=== PATIENT | male | born 1950 | race Hispanic/Latino ===

== ENCOUNTER 2016-05-01 05:51 | Day surgery (SDC) | payer OTHER ==
--- NOTE | 2016-04-28 11:50 | Anesthesia Consultation ---
Anesthesia Consult and Med Hx Date of service: 05/01/16 - Airway Anesthetic Teeth Evaluation: Dentures, Edentulous ROM Head & Neck: Adequate Mental/Hyoid Distance: Inadequate Mallampati Class: Class III Intubation Access Assessment: Possibly Difficult - Pulmonary Exam CTA: Yes - Cardiac Exam Cardiac Exam: RRR - Pre-Operative Health Status ASA Pre-Surgery Classification: ASA3 Proposed Anesthetic Plan: MAC - Pulmonary Hx Smoking: Yes (quit 2011, 2PPDx 47 years) COPD: Yes (mild) Hx Sleep Apnea: Yes (no longer using) - Cardiovascular System Hx Hypertension: Yes (high cholesterol) Hx Coronary Artery Disease: Yes (x6 stents) Hx Angina: Yes (none recently) Hx Percutaneous Transluminal Coronary Angioplasty (PTCA): Yes - Central Nervous System Hx Neuromuscular Disorder: No CVA: Yes (h/o TIA without deficits) - Gastrointestinal Hx Gastroesophageal Reflux Disease: Yes (well controlled) - Endocrine Hx Renal Disease: No (BPH) Hx End Stage Renal Disease: Yes (stage III) Hx Insulin Dependent Diabetes: Yes - Hematic Hx Anemia: No Hx Sickle Cell Disease: No - Other Systems Hx Alcohol Use: No Hx Substance Use: No Hx Cancer: No Hx Obesity: Yes
--- NOTE | 2016-05-01 07:30 | Anesthesia Day of Surgery ---
Anesthesia Day of Surgery - Day of Surgery Patient Examined: Yes Patient H&P Reviewed: Yes Patient is NPO: Yes Beta Blockers: Yes Cardiac Clearance: No Pulmonary Clearance: No
[2016-05-01] MEDS ORDERED: XYLOCAINE 1% 20 mL ONE (07:31)
[2016-05-01] MEDS ORDERED: DIPRIVAN 10 MG/ML IV ONE ×2 (07:32)
[2016-05-01] MEDS ORDERED: XYLOCAINE MPF 2% ONE (07:45)
--- NOTE | 2016-05-01 07:57 | Discharge Summary ---
Providers - Providers Date of discharge: 05/01/16 Attending physician: RU LANDRY Hospitalization Condition: Good Disposition: DISCHARGED TO HOME OR SELFCARE Core Measure Documentation - Palliative Care Palliative Care/ Comfort Measures: Not Applicable - Core Measures Any of the following diagnoses?: none Exam - Physical Exam Narrative exam: same as on h&p - Constitutional Vitals: Temp Pulse Resp BP Pulse Ox 97.5 F L 75 15 138/81 97 05/01/16 07:26 05/01/16 07:26 05/01/16 07:26 05/01/16 07:26 05/01/16 07:26 Plan Weight Bearing Status: Full Weight Bearing Diet: other (high protein) Follow up with: [facility] [Other] - 7 Days
[2016-05-01] MEDS ORDERED: NACL 0.9% 1000 ML 1,000 ML IV SCH (08:00)
--- NOTE | 2016-05-01 08:12 | Operative Report ---
Operative Report Operative Report: OPERATIVE REPORT - EGD DATE 05/01/16 SURGERY: Upper endoscopy. SURGEON: Moshe Kerr M.D. SENIOR PYTHON DEVELOPER: Remington Vargas Md PRE OP DX: dyspepsia POST OP DX: gastritis esophageal ulcer TYPE OF ANESTHESIA: MAC. ESTIMATED BLOOD LOSS: None. COMPLICATIONS: None. SPECIMENS REMOVED: gastric mucosal bx, and esophageal ulcer bx FINDINGS: 1. Small hiatal hernia. 2. gastritis 3. esophageal ulcer in distal esophagus INDICATIONS:INDICATION FOR PROCEDURE: Patient is a 65-year-old male with a long history of morbid obesity. She is planned to have a weight loss procedure and is here for preoperative planning EGD. PROCEDURE DETAILS: After consent was reviewed, patient was taken back to the operating room where patient was placed in the left lateral decubitus position and a bite block was placed in the mouth. After a time-out was called, MAC anesthesia was initiated. I then passed the endoscope into his oropharynx, into her esophagus, visualized the entire esophagus, which was within normal limits except for an ulcer in the distal portion. A biopsy was taken at this area. I then visualized the stomach which showed chronic gastritis and the first portion of the duodenum of which there were no abnormalities I could clearly visualize. A cold biopsy was taken of the gastric mucosa. I then retroflexed the scope in the stomach and visualized the hiatus and I could see a small hiatal hernia. I then desufflated the stomach and removed the endoscope. Patient tolerated procedure well and was transferred to recovery room in good and stable condition.
[2016-05-01 08:35] VITALS: BP 118/76
--- NOTE | 2016-05-01 09:48 | Post Anesthesia Evaluation ---
- Post Anesthesia Evaluation Patient Participated: Yes Airway Patent: Yes Stable Respiratory Function: Yes Nausea/Vomiting: No Temp > 96.8F: Yes Pain Manageable: Yes Adequeate Hydration: Yes Anesthesia Complications: No Block Receding Appropriately: Not Applicable Patient on Ventilator: No
== END 2016-05-01 05:52 | disposition home or self-care (01) ==
LOC: GIO 05:51
PROVIDERS: ATTEND Surgery
DX: K29.50 Unspecified chronic gastritis without bleeding (principal); K22.10 Ulcer of esophagus without bleeding; K44.9 Diaphragmatic hernia without obstruction or gangrene; J44.9 Chronic obstructive pulmonary disease, unspecified; K21.9 Gastro-esophageal reflux disease without esophagitis; I12.0 Hypertensive chronic kidney disease with stage 5 chronic kidney disease or end stage renal disease; E11.22 Type 2 diabetes mellitus with diabetic chronic kidney disease; N18.6 End stage renal disease; E78.00 Pure hypercholesterolemia, unspecified; E66.01 Morbid (severe) obesity due to excess calories; Z68.34 Body mass index [BMI] 34.0-34.9, adult; Z86.73 Personal history of transient ischemic attack (TIA), and cerebral infarction without residual deficits; Z95.5 Presence of coronary angioplasty implant and graft; Z87.891 Personal history of nicotine dependence; Z90.49 Acquired absence of other specified parts of digestive tract; Z98.1 Arthrodesis status; Z72.89 Other problems related to lifestyle; Z83.3 Family history of diabetes mellitus; Z82.49 Family history of ischemic heart disease and other diseases of the circulatory system
CPT/HCPCS: 43239; 82962; 88305; 88342; J2704; J7030

== ENCOUNTER 2016-05-15 06:58 | Inpatient (IN) | payer OTHER ==
[2016-04-28 11:27] LABS: Basophils % (Auto) 1.1 % (0.0-1.8); Eosinophils % (Auto) 4.2 % (0.0-4.3); Hematocrit 44.7 % (35.5-45.6); Hemoglobin 14.7 gm/dl (11.8-15.2); Mean Corpuscular HGB Conc 33 % (32-34); Mean Corpuscular Hemoglobin 29 pg (28-32); Mean Corpuscular Volume 87 fl (84-94); Platelet Count 257 K/mm3 (140-440); Red Blood Count 5.11 M/mm3 (3.65-5.03); Red Cell Distribution Width 13.9 % (13.2-15.2); White Blood Count 9.4 K/mm3 (4.5-11.0)
--- NOTE | 2016-04-28 11:52 | Anesthesia Consultation ---
Anesthesia Consult and Med Hx Date of service: 05/15/16 - Airway Anesthetic Teeth Evaluation: Dentures, Edentulous ROM Head & Neck: Adequate Mental/Hyoid Distance: Inadequate Mallampati Class: Class III Intubation Access Assessment: Possibly Difficult - Pulmonary Exam CTA: Yes - Cardiac Exam Cardiac Exam: RRR - Pre-Operative Health Status ASA Pre-Surgery Classification: ASA3 Proposed Anesthetic Plan: General - Pulmonary Hx Smoking: Yes (quit 2011, 2 PPD x 47 years) COPD: Yes ('' MILD'') Hx Sleep Apnea: Yes (IN THE PAST.) - Cardiovascular System Hx Hypertension: Yes (15YRS) Hx Coronary Artery Disease: Yes (x6 stents) Hx Angina: Yes Hx Percutaneous Transluminal Coronary Angioplasty (PTCA): Yes - Central Nervous System Hx Neuromuscular Disorder: No CVA: Yes (h/o TIA without deficits) Hx Psychiatric Problems: No - Gastrointestinal Hx Gastroesophageal Reflux Disease: Yes - Endocrine Hx End Stage Renal Disease: Yes (Stage III, BPH) Hx Insulin Dependent Diabetes: Yes (not well controlled, last A1C >8.0) - Hematic Hx Anemia: No Hx Sickle Cell Disease: No - Other Systems Hx Alcohol Use: No Hx Substance Use: No Hx Cancer: No Hx Obesity: Yes
[2016-04-28 12:49] LABS: Albumin 3.9 g/dL (3.9-5); Albumin/Globulin Ratio 1.3 %; Bilirubin,Total 0.4 mg/dL (0.1-1.2); Chloride 99.2 mmol/L (98-107); Potassium 4.2 mmol/L (3.6-5.0); Total Protein 6.8 g/dL (6.3-8.2)
--- NOTE | 2016-05-12 08:50 | Admit Criteria Form ---
Admission Criteria Documentation: AMBULATORY SURGERY EXCEPTION CRITERIA Ambulatory Surgery Exception Criteria ( Place 'X' for any and all applicable criteria): Surgery or procedure performed on ambulatory basis may require inpatient stay for[A] ANY ONE of the following(1)(2)(3)(4)(5)(6)(7)(8)(9): [X] I. A preoperative situation, condition, or finding that warrants inpatient stay as indicated by ANY ONE of the following: [] a) Inpatient care needed because of severity of a disease or condition rather than the surgery (eg, severe cardiac or respiratory disease, severe infection) (15) (16 ) (17) (18) [] b) Emergent procedure (eg, angioplasty for acute ischemia)(19) [] c) Complex surgical approach or situation as indicated by ANY ONE of the following(3): [] i) Open approach needed instead of usual endoscopic, transcatheter, or other less invasive procedure [] ii) Difficult approach because of previous operation [] iii) Airway monitoring required after open neck procedures(20)(21) [] iv) Large mass requiring unusually extensive dissection [] v) Additional complicating feature requiring inpatient care (eg, drain management)(22(23): [X] d) Major surgery in a pt with high anesthetic risk as indicated by ANY ONE of the following (2)(3)(5)(7)(8): [X] i) ASA risk class III or higher (severe systemic disease impairing function) [D] [] ii) Advanced age (eg, older than 85 years)(14)(24) [] iii) Symptomatic heart failure(25) [] iv) Symptomatic asthma or COPD(8)(21) [] v) Morbid obesity with hemodynamic or respiratory problems(20)( 21)(26)(27) [] vi) Obstructive sleep apnea(20)(21) [] vii) Former premature infants who are younger than 60 weeks [] viii) High risk for severe postoperative abnormalities (eg, severe postoperative hypocalcemia after parathyroidectomy for severe hyperparathyroidism)(27)( 28) [] ix) Unstable angina(25) [] e) Drug-related risk requiring inpatient stay as indicated by ANY ONE of the following(5)(10)(14)(32)(33) [] i) Procedure requires discontinuing drugs or other therapy (eg , antiarrhythmic medication, antiseizure medication), which necessitates inpatient observation or treatment.(18)(31) [] ii) Major surgery and high risk drug use as indicated by ANY ONE of the following: [] 1) Active abuse of cocaine or similar drug [] 2) Monoamine oxidase inhibitor use [] 3) Other drug identified as posing risk [] f) Inadequate outpatient care situation as indicated by ANY ONE of the following(5)(10)(14)(32)(33) [] i) Patient lives remote from medical facility and procedure has urgent complication potential, and temporary nearby residence cannot be arranged [] ii) Patient will have postprocedure incapacitation and inadequate assistance at home, or alternative level of care cannot be arranged. [] iii) Patient will have long general anesthesia or procedure side effect resolution time, and competent person to stay with patient on first postoperative night at home or alternative level of care cannot be arranged. []iv) Other inadequate outpatient situation that cannot be handled by other means [] II. A perioperative event, condition, or finding that warrants inpatient stay as indicated by ANY ONE of the following (1)(2)(3): [] a) Inadequate physiologic recovery: cardiovascular, respiratory, or hemodynamic status not normal or near preoperative baseline(18) [] b) Hemodynamic instability [] c) Patient not alert with near normal or baseline mental status [] d) Temperature not normal or as expected and not appropriate for outpatient treatment of condition [] e) Ambulatory or appropriate activity level status not yet achieved post procedure [E](34)(35)(36) [] f) Operative site not appropriate (eg, unexpected or excessive drainage or bleeding) [] g) Postoperative effects not resolved or adequately managed (eg, significant pain or vomiting not appropriate for outpatient or next level of care)(10)(12) [] h) Complicating features requiring inpatient care as indicated by ANY ONE of the following(37): [] i) Severe complications of procedure (eg, bowel injury, airway compromise, vascular injury,severe hemorrhage) [] ii) Extensive (eg, dissection far beyond usual scope of procedure ) or prolonged (eg, 120 minutes beyond usual) surgery needed requiring inpatient postoperative care [] iii) Conversion to an open or complex procedure that requires inpatient care (eg, open vs laparoscopic cholecystectomy, abdominal vs vaginal hysterectomy)(38) [] iv) Comorbid condition or test result identified during or post procedure that requires inpatient care (7) [] v) Malignant hyperthermia(30) [] vi) Other complicating feature requiring inpatient care(22)(23) Inpatient stay may be needed until ALL of the following are present (1)(2)(3)(4) (5)(6)(10)(14)(33)(40): []a) Physiologic recovery: cardiovascular, respiratory, and hemodynamic status normal or near preoperative baseline []b) Hemodynamic stability []c) Patient alert, with near normal or baseline mental status []d) Temperature appropriate: patient afebrile or temperature appropriate for outpt treatment of condition []e) Activity level appropriate: ambulatory or appropriate activity level post procedure []f) Operative site appropriate as indicated by ALL of the following: []i) Site dry or with expected drainage []ii) Any blood noted is as expected for procedure. []g) Postoperative effects resolved or managed as indicated by ALL of the following: []i) Pain management appropriate for outpatient (or next level of) care(10) []ii) Minimal nausea and vomiting: if present, successfully treated with oral medication(12) []iii) Headache, dizziness, or drowsiness (if present) are mild. []h) Voiding status acceptable as indicated by ANY ONE of the following: []i) Voiding spontaneously []ii) No voiding but instructions given for follow-up in 6 to 8 hours []iii) Urinary catheter in place, and instructions given for follow-up []i) Complicating features requiring inpatient care manageable at a lower level of care(37) []j) Comorbid conditions manageable at a lower level of care(37) The original [employer] content created by [employer] has been revised. The portions of the content which have been revised are identified through the use of italic text or in bold, and [facility] [employer] has neither reviewed nor approved the modified material. All other unmodified content is copyright [employer]. Please see references footnoted in the original [employer] edition 2016 Admission Criteria Met: Yes
[~2016-05-15 06:58] MED LIST: NACL 0.9% 1000 ML 1,000 ML IV SCH; PEPCID PO NR; VERSED IV NR
[2016-05-15] MEDS ORDERED: DIPRIVAN 10 MG/ML IV ONE ×2 (07:10→11:13)
--- NOTE | 2016-05-15 08:26 | Anesthesia Day of Surgery ---
Anesthesia Day of Surgery - Day of Surgery Patient H&P Reviewed: Yes Patient is NPO: Yes Beta Blockers: Yes Cardiac Clearance: Yes Pulmonary Clearance: Yes
[2016-05-15] MEDS ORDERED: SUBLIMAZE ONE (08:28)
[2016-05-15] MEDS ORDERED: SUBLIMAZE IV PRN (08:30)
[2016-05-15] MEDS ORDERED: DILAUDID IV PRN (08:30)
[2016-05-15] MEDS ORDERED: ZOFRAN IV PRN ×3 (09:00→14:34)
[2016-05-15] MEDS ORDERED: ANCEF/STERILE WATER 2 GM/20 ML IV NR (09:00)
[2016-05-15] MEDS ORDERED: FLAGYL 500 MG/100 ML 500 MG/100 ML BAG IV NR (09:00)
[2016-05-15] MEDS ORDERED: NACL BACTERIOSTATIC INFILTRATI ONE (09:07)
[2016-05-15] MEDS ORDERED: WATER FOR IRRIG STERILE IR ONE (10:19)
[2016-05-15] MEDS ORDERED: LOVENOX SUB-Q NR (11:00)
[2016-05-15] MEDS ORDERED: TRANSDERM-SCOP TD NR (11:00)
[2016-05-15] MEDS ORDERED: ePHEDrine SULFATE ONE (11:46)
[2016-05-15] MEDS ORDERED: MARCAINE-EPI/PF 0.5%-1:200,000 INFILTRATI ONE (11:47)
[2016-05-15] MEDS ORDERED: NACL 0.9% IR ONE ×2 (11:47)
[2016-05-15] MEDS ORDERED: XYLOCAINE 1% 20 mL INFILTRATI ONE (11:47)
[2016-05-15] MEDS ORDERED: XYLOCAINE MPF 2% ONE (11:59)
[2016-05-15] MEDS ORDERED: QUELICIN ONE (11:59)
[2016-05-15] MEDS ORDERED: ZEMURON IV ONE ×2 (11:59→12:29)
[2016-05-15] MEDS ORDERED: DECADRON ONE (12:00)
[2016-05-15] MEDS ORDERED: ROBINUL ONE (12:01)
[2016-05-15] MEDS ORDERED: NEOSTIGMINE ONE (12:01)
[2016-05-15] MEDS ORDERED: NACL 0.9% 1000 ML 1,000 ML ONE (13:06)
[2016-05-15] MEDS ORDERED: ZOFRAN ONE ×2 (13:26)
--- NOTE | 2016-05-15 13:56 | Operative Report ---
Operative Report Operative Report: Operative Report DATE OF PROCEDURE: SURGEON: Moshe Kerr M.D. BERRY PICKER MACHINE OPERATOR: Remington Vargas MD PREOPERATIVE DIAGNOSIS: Morbid obesity. POSTOPERATIVE DIAGNOSES: Morbid obesity PROCEDURES PERFORMED: 1. Laparoscopic gastric bypass. 2. EGD. ANESTHESIA: General endotracheal tube intubation. SPECIMENS: None. ESTIMATED BLOOD LOSS: Less than 10 mL. FINDINGS: Normal anatomy. COMPLICATIONS: None. INDICATION: Mr. Medina is a 65-year-old male with history of morbid obesity. He signed informed consent and expressed understanding of risks and benefits. DESCRIPTION OF PROCEDURE: Patient was brought to the OR suite, laid in supine position. Bilateral lower extremity SCDs were placed. General anesthesia was induced via successful endotracheal tube intubation. Patient's abdomen was prepped and draped in sterile fashion. Using Optiview technique, a 12-mm trocar was placed into the abdominal cavity under direct vision. There was noted to be no gross injury to any intraabdominal structures. 5 working trocars were placed under direct visualization, 12 mm in the right mid abdomen mid clavicular line and four 5-mm trocars in the right upper quadrant, epigastric, left upper quadrant and left mid abdomen. All sites were infiltrated with local anesthetic before trocar placement At this time, the ligament of Treitz identified and followed down approximately 30 cm and the jejunum was transected. The distal segment of jejunum was then traced for approximately 75 cm and a stable [id number] jejunojejunostomy was performed. The common enterotomy was closed with 2 firings of the endoscopic stapler. The mesenteric defect was closed with running Surgidac suture. This anastomosis was found to be patent without kink, obstruction or bleeding. At this time, the patient was placed in steep reverse Trendelenburg position. A liver retractor was placed through the epigastric port to elevate the left lateral lobe of the liver. A small gastric pouch was formed. The Tiffani limb was then brought in an antegastric antecolic fashion and secured with 2 stay sutures to the gastric pouch. After this, the enterotomies were made with Harmonic scalpel, and a [id number] stapled gastrojejunostomy was performed with a mechanical stapler. After this, a 2-layer running closure using Polysorb suture were done, the first being mucosal approximation prior to completion of the first layer. The anesthesia passed and an EGD scope beyond the anastomosis to act as a stent. The first layer was completed, the second was then performed. After this, the EGD was retracted slightly. A bowel clamp was placed in a proximal Tiffani limb. The anastomosis was submerged under saline. Via intraluminal EGD insufflation, there was noted be no bubbles in the saline indicating an airtight anastomosis. There was noted to be no obstruction or bleeding intraluminally in the pouch or the anastomosis. At this time, the scope was removed. The saline was aspirated. Tiseel was placed over the anastomosis. All trocars were removed under direct visualization and the abdomen was then desufflated. The skin incisions were closed with 4-0 Monocryl followed by Dermabond dressings. Patient was awoken and taken to recovery in stable condition. All counts were correct.
[2016-05-15] MEDS ORDERED: D50W (25GM) IV PRN (13:57)
[2016-05-15] MEDS ORDERED: APRESOLINE IV PRN (13:57)
[2016-05-15] MEDS ORDERED: MYLICON PO PRN (13:57)
[2016-05-15] MEDS: DILAUDID IV PRN ×6 (15:10→21:12)
[2016-05-15] MEDS: ANCEF/NS 1 GM/50 ML 1 GM/50 ML BAG IV SCH ×2 (16:27→22:31)
[2016-05-15] MEDS: FLAGYL 500 MG/100 ML 500 MG/100 ML BAG IV SCH ×2 (16:27→22:31)
[2016-05-15] MEDS: LACTATED RINGERS 1,000 ML IV SCH (16:28)
[2016-05-15] MEDS: TORADOL IV SCH ×2 (16:28→21:14)
[2016-05-16] MEDS: TORADOL IV SCH ×2 (02:13→07:49)
[2016-05-16] MEDS ORDERED: NORCO PO PRN (06:00)
[2016-05-16] MEDS: FLAGYL 500 MG/100 ML 500 MG/100 ML BAG IV SCH (06:12)
[2016-05-16] MEDS: LACTATED RINGERS 1,000 ML IV SCH (06:12)
[2016-05-16] MEDS ORDERED: LOVENOX SUB-Q SCH (10:00)
[2016-05-16 10:06] LABS: Basophils % (Auto) 0.8 % (0.0-1.8); Eosinophils % (Auto) 0.1 % (0.0-4.3); Hematocrit 41.2 % (35.5-45.6); Hemoglobin 13.5 gm/dl (11.8-15.2); Mean Corpuscular HGB Conc 33 % (32-34); Mean Corpuscular Hemoglobin 28 pg (28-32); Mean Corpuscular Volume 87 fl (84-94); Platelet Count 247 K/mm3 (140-440); Red Blood Count 4.76 M/mm3 (3.65-5.03); White Blood Count 11.2 K/mm3 (4.5-11.0)
[2016-05-16 10:53] LABS: Albumin 3.6 g/dL (3.9-5); Albumin/Globulin Ratio 1.2 %; BUN/Creatinine Ratio 16.42; Bilirubin,Total 0.4 mg/dL (0.1-1.2); Calcium 8.4 mg/dL (8.4-10.2); Chloride 100.5 mmol/L (98-107); Potassium 3.9 mmol/L (3.6-5.0); Total Protein 6.5 g/dL (6.3-8.2)
--- NOTE | 2016-05-16 11:27 | Discharge Summary ---
Providers - Providers Date of Admission: 05/15/16 06:58 Date of discharge: 05/16/16 Attending physician: RU LANDRY Hospitalization Reason for admission: post op observation Condition: Stable Procedures: Lap RYGB Disposition: DISCHARGED TO HOME OR SELFCARE Core Measure Documentation - Palliative Care Palliative Care/ Comfort Measures: Not Applicable - Core Measures Any of the following diagnoses?: none Exam - Physical Exam Narrative exam: NAD Lungs CTA BL Heart RRR Abd Soft, appropriate wound TTP, wounds c/d/i with dermabond Neuro AAOx3 - Constitutional Vitals: Temp Pulse Resp BP Pulse Ox 97.7 F 76 18 133/80 98 05/16/16 08:00 05/16/16 08:00 05/16/16 08:00 05/16/16 08:00 05/16/16 09:20 Plan Activity: advance as tolerated Diet: other (bariatric stage 1) Special Instructions: no heavy lifting Follow up with: [facility] [Other] - 7 Days
[2016-05-16 15:18] VITALS: BP 130/78
== END 2016-05-16 13:00 | disposition home or self-care (01) | DRG 621 ==
LOC: 3A 06:58 → 2B-SURG 14:18
PROVIDERS: ADMIT Surgery; ATTEND Surgery
PROC: 0D164ZA Bypass Stomach to Jejunum, Percutaneous Endoscopic Approach (ICD-10-PCS; principal; 2016-05-15)
PROC: 0D1A4ZA Bypass Jejunum to Jejunum, Percutaneous Endoscopic Approach (ICD-10-PCS; principal; 2016-05-15)
DX: E66.01 Morbid (severe) obesity due to excess calories (principal); J44.9 Chronic obstructive pulmonary disease, unspecified; I25.10 Atherosclerotic heart disease of native coronary artery without angina pectoris; K21.9 Gastro-esophageal reflux disease without esophagitis; E11.9 Type 2 diabetes mellitus without complications; I12.9 Hypertensive chronic kidney disease with stage 1 through stage 4 chronic kidney disease, or unspecified chronic kidney disease; Z68.35 Body mass index [BMI] 35.0-35.9, adult; Z98.61 Coronary angioplasty status; Z87.891 Personal history of nicotine dependence; Z86.73 Personal history of transient ischemic attack (TIA), and cerebral infarction without residual deficits; Z79.4 Long term (current) use of insulin
CPT/HCPCS: 36415; 80053; 82962; 85025; 94760; A4217; C9250; J0330; J0690; J1100; J1170; J1650; J1815; J1885; J2250; J2405; J2704; J2710; J3010; J7030; J7120